=== PATIENT | male | born 1970 | race Two or more races ===

== ENCOUNTER 2017-11-08 16:03 | Inpatient (IN) | payer OTHER ==
[2017-11-08 16:10] VITALS: BMI 27.0
[2017-11-08] MEDS ORDERED: IBUPROFEN 400 MG TABLET (FP) PO PRN (17:10)
[2017-11-08] MEDS ORDERED: LOPERAMIDE HCL 2 MG CAPSULE PO PRN (17:10)
[2017-11-08] MEDS ORDERED: MAGNESIUM CITRATE 300 ML BOTTLE PO PRN (17:10)
[2017-11-08] MEDS ORDERED: chlordiazePOXIDE HCL 25 MG CAPSULE PO PRN (17:10)
[2017-11-08] MEDS ORDERED: ACETAMINOPHEN 325 MG TABLET (FP) PO PRN (17:10)
[2017-11-08] MEDS ORDERED: P-EPHED 60MG/TRIPROLIDI 2.5MG TABLET PO PRN (17:10)
[2017-11-08] MEDS ORDERED: chlordiazePOXIDE HCL 25 MG CAPSULE PO ONE (17:10)
[2017-11-08] MEDS ORDERED: hydrOXYzine PAMOATE 50 MG CAPSULE (FP) PO PRN (17:10)
[2017-11-08] MEDS ORDERED: guaiFENesin/D-METHORPHAN HB 10 ML UNIT-DOSE CUPS PO PRN (17:10)
[2017-11-08] MEDS ORDERED: MAGNESIUM HYDROX 2400MG/30ML ORAL SUSPENSION 30 ML CUP PO PRN (17:10)
[2017-11-08] MEDS ORDERED: MENTHOL/PHENOL 1 EACH UD MM PRN (17:10)
--- NOTE | 2017-11-08 17:27 | HP ---
CIWA Score - CIWA Score Nausea/Vomitin Muscle Tremors: 5 Anxiety: 4-Mod. Anxious/Guarded Agitation: 4-Moderately Restless Paroxysmal Sweats: 3 Orientation: 1-Uncertain about Date Tacttile Disturbances: 0-None Auditory Disturbances: 0-None Visual Disturbances: 0-None Headache: 0-None Present CIWA-Ar Total Score: 20 Admission ROS BHS - HPI Chief Complaint: Withdrawal sx. Allergies/Adverse Reactions: Allergies Allergy/AdvReac Type Severity Reaction Status Date / Time cranberry Allergy Intermediate Rash Verified 11/08/17 17:18 peanut Allergy Intermediate Rash Verified 11/08/17 17:18 cranberry Allergy Intermediate Rash Uncoded 11/08/17 17:06 peanuts Allergy Intermediate Rash Uncoded 11/08/17 17:05 History of Present Illness: 47 y/o man with a long hx. of alcoholism is admitted for detox. Pt. has been in previous detox, denies significant sobriety. Pt. was at [facility] from last night to this morning for alcohol intoxication & chest pain. Exam Limitations: No Limitations - Ebola screening Have you traveled outside of the country in the last 21 days: No Have you had contact with anyone from an Ebola affected area: No Have you been sick,other than usual withdrawal symptoms: No Do you have a fever: No - Review of Systems Constitutional: Diaphoresis EENT: reports: No Symptoms Reported Respiratory: reports: No Symptoms reported Cardiac: reports: No Symptoms Reported GI: reports: Nausea, Abdominal cramping Musculoskeletal: reports: Back Pain Integumentary: reports: Sweating Neuro: reports: Tremors, Other (black out) Endocrine: reports: No Symptoms Reported Hematology: reports: No Symptoms Reported Psychiatric: reports: No Sypmtoms Reported Other Systems: Reviewed and Negative Patient History - Patient Medical History Hx Anemia: No Hx Asthma: No Hx Chronic Obstructive Pulmonary Disease (COPD): No Hx Cancer: No Hx Cardiac Disorders: Yes (coronary stent, mild [place]?) Hx Congestive Heart Failure: No Hx Hypertension: Yes Hx Hypercholesterolemia: Yes Hx Pacemaker: No HX Cerebrovascular Accident: No Hx Seizures: Yes (2015 ?) Hx Dementia: No Hx Diabetes: Yes (BGM-97) Hx Gastrointestinal Disorders: No Hx Liver Disease: No Hx Genitourinary Disorders: No Hx Sexually Transmitted Disorders: No Hx Renal Disease (ESRD): No Hx Thyroid Disease: No Hx Human Immunodeficiency Virus (HIV): No Hx Hepatitis C: No Hx Depression: Yes Hx Suicide Attempt: Yes Hx Bipolar Disorder: No Hx Schizophrenia: No - Patient Surgical History Past Surgical History: Yes Hx Cardiac Surgery: Yes (cardiiac stents) - PPD History Previous Implant?: Yes Documented Results: Positive w/o proof Implanted On Prior [facility] Admission?: No PPD to be Administered?: No - Smoking Cessation Smoking history: Never smoked Hx Chewing Tobacco Use: No Initiated information on smoking cessation: No - Substance & Tx. History Hx Alcohol Use: Yes Hx Substance Use: No Substance Use Type: Alcohol Hx Substance Use Treatment: Yes ([facility]) - Substances Abused Alcohol Route: Oral Frequency: Daily Amount used: vodka(2-3 1/4 pints) Age of first use: 14 Date of Last Use: 11/07/17 Family Disease History - Family Disease History Family Disease History: Heart Disease: Father ( of heart disease) Admission Physical Exam S - Vital Signs Vital Signs: Vital Signs - 24 hr 11/08/17 16:09 Temperature 97 F L Pulse Rate 98 H Respiratory 20 Rate Blood Pressure 162/99 - Physical General Appearance: Yes: Tremorous, Irritable, Sweating, Anxious HEENTM: Yes: Within Normal Limits Respiratory: Yes: Chest Non-Tender, Lungs Clear, Normal Breath Sounds Neck: Yes: Supple Breast: Yes: Breast Exam Deferred Cardiology: Yes: Regular Rhythm, Regular Rate, S1, S2 Abdominal: Yes: Normal Bowel Sounds, Non Tender, Flat Genitourinary: Yes: Within Normal Limits Back: Yes: Within Normal Limits Musculoskeletal: Yes: Within Normal Limits Extremities: Yes: Tremors Neurological: Yes: Fully Oriented, Alert Integumentary: Yes: Diaphoresis Lymphatic: Yes: Within Normal Limits - Diagnostic (1) Alcohol dependence with uncomplicated withdrawal Current Visit: Yes Status: Acute (2) HTN (hypertension) Current Visit: Yes Status: Acute Qualifiers: Hypertension type: essential hypertension Qualified Code(s): I10 - Essential (primary) hypertension (3) CAD (coronary artery disease) Current Visit: Yes Status: Acute Qualifiers: Coronary Disease-Associated Artery/Lesion type: [place] artery [place] vs. transplanted heart: [place] heart Associated angina: without angina Qualified Code(s): I25.10 - Atherosclerotic heart disease of [place] coronary artery without angina pectoris (4) Stented coronary artery Current Visit: Yes Status: Acute Cleared for Admission [facility] - Detox or Rehab [facility] Level of Care: Medically Managed Detox Regimen/Protocol: Librium [facility] Breath Alcohol Content Breath Alcohol Content: 0.113 Urine Drug Screen - Results Drug Screen Negative: No Urine Drug Screen Results: BZO-Benzodiazepines
[2017-11-08] MEDS: METOPROLOL TARTRATE 25 MG TABLET (FP) PO SCH (18:37)
[2017-11-08] MEDS: ASPIRIN COATED 81 MG TABLET.EC PO SCH (18:37)
[2017-11-08] MEDS: amLODIPine BESYLATE 10 MG TABLET (FP) PO SCH (18:38)
[2017-11-08 19:29] LABS: URINE APPEARANCE CLEAR; URINE BILIRUBIN NEGATIVE (NEGATIVE); URINE BLOOD NEGATIVE (NEGATIVE); URINE COLOR LTYELLOW; URINE GLUCOSE (UA) NEGATIVE (NEGATIVE); URINE KETONE NEGATIVE (NEGATIVE); URINE LEUK ESTERASE NEGATIVE (NEGATIVE); URINE NITRITE NEGATIVE (NEGATIVE); URINE PROTEIN NEGATIVE (NEGATIVE); URINE UROBILINOGEN 4.0 E.U/dl mg/dL (0.2-1.0)
[2017-11-08] MEDS: chlordiazePOXIDE HCL 25 MG CAPSULE PO SCH (22:08)
[2017-11-08] MEDS: THIAMINE HCL 100 MG TABLET (FP) PO SCH (22:09)
[2017-11-08] MEDS: ATORVASTATIN CA 20 MG TABLET (FP) PO SCH (22:09)
[2017-11-08 22:30] LABS: URINE LEUK ESTERASE Negative (NEGATIVE)
[2017-11-09] MEDS: chlordiazePOXIDE HCL 25 MG CAPSULE PO SCH ×4 (05:04→22:01)
[2017-11-09] MEDS: PRENATAL VITAMINS W/ FOLIC ACID TABLET (FP) PO SCH (09:05)
[2017-11-09] MEDS: ASPIRIN COATED 81 MG TABLET.EC PO SCH (09:05)
[2017-11-09] MEDS: amLODIPine BESYLATE 10 MG TABLET (FP) PO SCH (09:05)
[2017-11-09] MEDS: METOPROLOL TARTRATE 25 MG TABLET (FP) PO SCH (09:05)
--- NOTE | 2017-11-09 10:41 | CONSULT ---
[facility] Psychiatric Consult - Data Date of interview: 11/09/17 Admission source: [facility] Identifying data: This is 47 years old male with psychiatric hospitalization history intoxicated with [id number] Substance Abuse History: - Smoking Cessation. Smoking history: Never smoked. Hx Chewing Tobacco Use: No. Initiated information on smoking cessation: No. - Substance & Tx. History. Hx Alcohol Use: Yes. Hx Substance Use: No. Substance Use Type: Alcohol. Hx Substance Use Treatment: Yes ([facility] - Substances Abused. Alcohol. Route: Oral. Frequency: Daily. Amount used: vodka(2-3 1/4 pints). Age of first use: 14. Date of Last Use: 11/07/17 Medical History: HTN, CAD, Cardiac stent imstallment on 2004 Psychiatric History: Reports no medicationms ntaking priorm to admission, reports unclear psychiatric admission on 2013 at [facility] for safety Physical/Sexual Abuse/Trauma History: Denies Additional Comment: Obsevation. Detox Unit Care Protocol Mental Status Exam - Mental Status Exam Alert and Oriented to: Person Cognitive Function: Fair Patient Appearance: Unkempt Mood: Sad Affect: Flat Patient Behavior: Cooperative Speech Pattern: Appropriate Voice Loudness: Mildly Soft/Quiet Thought Process: Circumstantial Hallucinations: Denies Suicidal Ideation: Denies Homicidal Ideation: Denies Insight/Judgement: Fair Sleep: Difficulty falling asleep Appetite: Weight gain Muscle strength/Tone: Mild Hypotonicity Gait/Station: Shuffling Additional Comments: Obsevation. Detox Unit Care Protocol Psychiatric Findings - Problem List ([place] 1, 2,3) (1) Alcohol-induced mood disorder Current Visit: Yes Status: Acute (2) Alcohol dependence with uncomplicated withdrawal Current Visit: Yes Status: Acute - Initial Treatment Plan Initial Treatment Plan: Obsevation. Detox Unit Care Protocol
[2017-11-09 11:30] LABS: MCH 24.2 pg (25.7-33.7); MCHC 30.7 g/dl (32.0-35.9); MEAN CELL VOLUME 78.8 fl (80-96); MEAN PLT VOLUME 8.6 fl (7.5-11.1); PLATELET COUNT 104 K/MM3 (134-434); RDW 22.8 % (11.9-15.9); WHITE BLOOD COUNT 3.7 K/mm3 (4.0-10.0)
[2017-11-09 11:38] LABS: ALBUMIN 3.1 g/dl (3.4-5.0); ANION GAP 7 (8-16); CALCIUM 8.5 mg/dL (8.5-10.1); CO2 29 mmol/L (21-32); CREATININE 1.1 mg/dL (0.7-1.3); GLUCOSE,RANDOM 88 mg/dL (74-106); SGOT/AST 31 U/L (15-37); SGPT/ALT 27 U/L (12-78)
[2017-11-09 11:40] LABS: ALK PHOS 80 U/L (45-117); BILIRUBIN,TOTAL 0.7 mg/dL (0.2-1.0); TOT PROT 6.4 g/dl (6.4-8.2)
[2017-11-09 12:21] LABS: ANISOCYTOSIS 2+; HYPOCHROMIA 3+; MICROCYTOSIS 2+; TARGET CELLS 2+
--- NOTE | 2017-11-09 12:50 | PN ---
[facility] CIWA - CIWA Score Nausea/Vomitin-Mild Nausea/No Vomiting Muscle Tremors: 4-Moderate,w/Arms Extend Anxiety: 4-Mod. Anxious/Guarded Agitation: 4-Moderately Restless Paroxysmal Sweats: 5 Orientation: 0-Oriented Tacttile Disturbances: 1-Very Mild Itch/Numbness Auditory Disturbances: 0-None Visual Disturbances: 0-None Headache: 2-Mild CIWA-Ar Total Score: 21 BHS Progress Note (SOAP) Subjective: Headache, sweating, nausea, feeling confused at times. Patient stated he was found collapsed on the street couple of times due to hypoglycemia. As per patient, he walks about 1/4 of a mile daily in the morning and that he sometimes don't eat breakfast and never checked his finger stick. He reports being dx with DMT2 in 2001. Duplicating Machine Operator educated patient on hypoglycemic symptoms and importance of checking his finger sticks every day and also when he is going to exercise such as walking as this will drop his glucose. Duplicating Machine Operator encouraged patient to make sure his finger stick is at least =/>100 prior to ambulation and to always carry a hard candy, some sugar or juice with him in case he started experiencing hypoglycemic sxs. Patient stated he has a PCP in [place] but he doesn't follow up because it is too far from his home. Duplicating Machine Operator instructed patient to call his health insurance and request a PCP closer to home. Duplicating Machine Operator educated patient about the importance of controlling his diabetes in preventing complications and to follow up with his PCP, Front Office Medical Assistant and Job Placement Specialist frequently. Objective: 11/09/17 12:50 Last Vital Signs Temp Pulse Resp BP Pulse Ox 98.6 F 76 18 128/89 11/09/17 09:11 11/09/17 09:11 11/09/17 09:11 11/09/17 09:11 Laboratory Tests 11/08/17 11/08/17 11/09/17 17:14 18:00 05:05 WBC RBC Hgb Hct MCV MCH MCHC RDW Plt Count MPV Hypochromia Anisocytosis Microcytosis Target Cells Sodium Potassium Chloride Carbon Dioxide Anion Gap BUN Creatinine Creat Clearance w eGFR POC Glucometer 97 103 Random Glucose Calcium Total Bilirubin AST ALT Alkaline Phosphatase Total Protein Albumin Urine Color Ltyellow Urine Appearance Clear Urine pH 7.0 Ur Specific [place] 1.015 Urine Protein Negative Urine Glucose (UA) Negative Urine Ketones Negative Urine Blood Negative Urine Nitrite Negative Urine Bilirubin Negative Urine Urobilinogen 4.0 e.u/dl Ur Leukocyte Esterase Negative RPR Titer 11/09/17 11/09/17 11/09/17 07:45 07:45 07:45 WBC 3.7 L RBC 4.26 Hgb 10.3 L Hct 33.5 L MCV 78.8 L MCH 24.2 L MCHC 30.7 L RDW 22.8 H Plt Count 104 L MPV 8.6 Hypochromia 3+ Anisocytosis 2+ Microcytosis 2+ Target Cells 2+ Sodium 135 L Potassium 3.6 Chloride 99 Carbon Dioxide 29 Anion Gap 7 L BUN 14 Creatinine 1.1 Creat Clearance w eGFR > 60 POC Glucometer Random Glucose 88 Calcium 8.5 Total Bilirubin 0.7 AST 31 ALT 27 Alkaline Phosphatase 80 Total Protein 6.4 Albumin 3.1 L Urine Color Urine Appearance Urine pH Ur Specific [place] Urine Protein Urine Glucose (UA) Urine Ketones Urine Blood Urine Nitrite Urine Bilirubin Urine Urobilinogen Ur Leukocyte Esterase RPR Titer Nonreactive Labs noted: wbc 3.7, h/h 10.3/33.5, plt 104 Assessment: 11/09/17 12:53 Withdrawal symptoms Noted with pancytopenia Plan: Continue detox Pancytopenia: stable, follow up with PCP post discharge for monitoring/ management
--- NOTE | 2017-11-09 15:27 | EKG ---
Test Reason : Blood Pressure : / mmHG Vent. Rate : 093 BPM Atrial Rate : 093 BPM P-R Int : 158 ms QRS Dur : 088 ms QT Int : 352 ms P-R-T Axes : 000 034 116 degrees QTc Int : 437 ms NORMAL SINUS RHYTHM MODERATE VOLTAGE CRITERIA FOR LVH, MAY BE NORMAL VARIANT CANNOT RULE OUT SEPTAL INFARCT , AGE UNDETERMINED ABNORMAL ECG NO PREVIOUS ECGS AVAILABLE Confirmed by EL POON MD ([id number]) on 11/09/2017 3:27:17 PM Referred By: Confirmed By:EL POON MD
[2017-11-09] MEDS: THIAMINE HCL 100 MG TABLET (FP) PO SCH (22:00)
[2017-11-09] MEDS: ATORVASTATIN CA 20 MG TABLET (FP) PO SCH (22:01)
[2017-11-10] MEDS: chlordiazePOXIDE HCL 25 MG CAPSULE PO SCH ×3 (05:44→17:26)
[2017-11-10] MEDS: ASPIRIN COATED 81 MG TABLET.EC PO SCH (10:14)
[2017-11-10] MEDS: PRENATAL VITAMINS W/ FOLIC ACID TABLET (FP) PO SCH (10:14)
[2017-11-10] MEDS: METOPROLOL TARTRATE 25 MG TABLET (FP) PO SCH (10:14)
[2017-11-10] MEDS: amLODIPine BESYLATE 10 MG TABLET (FP) PO SCH (10:14)
--- NOTE | 2017-11-10 11:24 | PN ---
[facility] CIWA - CIWA Score Nausea/Vomitin-No Nausea/No Vomiting Muscle Tremors: 4-Moderate,w/Arms Extend Anxiety: 4-Mod. Anxious/Guarded Agitation: 4-Moderately Restless Paroxysmal Sweats: 1-Minimal Palms Moist Orientation: 0-Oriented Tacttile Disturbances: 3-Moderate Itch/Numb/Burn Auditory Disturbances: 0-None Visual Disturbances: 0-None Headache: 0-None Present CIWA-Ar Total Score: 16 S Progress Note (SOAP) Subjective: IRRITABILITY,SWEATS,TREMORS. Objective: 11/10/17 11:23 Vital Signs Temperature 97.8 F 11/10/17 08:59 Pulse Rate 108 H 11/10/17 08:59 Respiratory Rate 18 11/10/17 08:59 Blood Pressure 142/85 11/10/17 08:59 O2 Sat by Pulse Oximetry (%) Laboratory Last Values WBC 3.7 K/mm3 (4.0-10.0) L 11/09/17 07:45 RBC 4.26 M/mm3 (4.00-5.60) 11/09/17 07:45 Hgb 10.3 GM/dL (11.7-16.9) L 11/09/17 07:45 Hct 33.5 % (35.4-49) L 11/09/17 07:45 MCV 78.8 fl (80-96) L 11/09/17 07:45 MCH 24.2 pg (25.7-33.7) L 11/09/17 07:45 MCHC 30.7 g/dl (32.0-35.9) L 11/09/17 07:45 RDW 22.8 % (11.9-15.9) H 11/09/17 07:45 Plt Count 104 K/MM3 (134-434) L 11/09/17 07:45 MPV 8.6 fl (7.5-11.1) 11/09/17 07:45 Hypochromia 3+ 11/09/17 07:45 Anisocytosis 2+ 11/09/17 07:45 Microcytosis 2+ 11/09/17 07:45 Target Cells 2+ 11/09/17 07:45 Sodium 135 mmol/L (136-145) L 11/09/17 07:45 Potassium 3.6 mmol/L (3.5-5.1) 11/09/17 07:45 Chloride 99 mmol/L (98-107) 11/09/17 07:45 Carbon Dioxide 29 mmol/L (21-32) 11/09/17 07:45 Anion Gap 7 (8-16) L 11/09/17 07:45 BUN 14 mg/dL (7-18) 11/09/17 07:45 Creatinine 1.1 mg/dL (0.7-1.3) 11/09/17 07:45 Creat Clearance w eGFR > 60 (>60) 11/09/17 07:45 POC Glucometer 108 UNITS (80-120) 11/10/17 05:01 Random Glucose 88 mg/dL (74-106) 11/09/17 07:45 Calcium 8.5 mg/dL (8.5-10.1) 11/09/17 07:45 Total Bilirubin 0.7 mg/dL (0.2-1.0) 11/09/17 07:45 AST 31 U/L (15-37) 11/09/17 07:45 ALT 27 U/L (12-78) 11/09/17 07:45 Alkaline Phosphatase 80 U/L (45-117) 11/09/17 07:45 Total Protein 6.4 g/dl (6.4-8.2) 11/09/17 07:45 Albumin 3.1 g/dl (3.4-5.0) L 11/09/17 07:45 Urine Color Ltyellow 11/08/17 18:00 Urine Appearance Clear 11/08/17 18:00 Urine pH 7.0 (5.0-8.0) 11/08/17 18:00 Ur Specific [place] 1.015 (1.001-1.035) 11/08/17 18:00 Urine Protein Negative (NEGATIVE) 11/08/17 18:00 Urine Glucose (UA) Negative (NEGATIVE) 11/08/17 18:00 Urine Ketones Negative (NEGATIVE) 11/08/17 18:00 Urine Blood Negative (NEGATIVE) 11/08/17 18:00 Urine Nitrite Negative (NEGATIVE) 11/08/17 18:00 Urine Bilirubin Negative (NEGATIVE) 11/08/17 18:00 Urine Urobilinogen 4.0 e.u/dl mg/dL (0.2-1.0) 11/08/17 18:00 Ur Leukocyte Esterase Negative (NEGATIVE) 11/08/17 18:00 RPR Titer Nonreactive (NONREACTIVE) 11/09/17 07:45 Assessment: 11/10/17 11:23 WITHDRAWAL SX Plan: CONTINUE DETOX
[2017-11-10] MEDS: MAG HYDROX/AL HYDROX/SIMETH 30 ML UNIT-DOSE CUP PO PRN (15:53)
[2017-11-10] MEDS: THIAMINE HCL 100 MG TABLET (FP) PO SCH (22:16)
[2017-11-10] MEDS: ATORVASTATIN CA 20 MG TABLET (FP) PO SCH (22:16)
[2017-11-10] MEDS: chlordiazePOXIDE 5 MG CAPSULE PO SCH (22:16)
[2017-11-11] MEDS: chlordiazePOXIDE 5 MG CAPSULE PO SCH ×3 (05:12→18:29)
[2017-11-11] MEDS: MAG HYDROX/AL HYDROX/SIMETH 30 ML UNIT-DOSE CUP PO PRN (09:12)
--- NOTE | 2017-11-11 10:04 | PN ---
S Progress Note (SOAP) Subjective: DECREASED ANXIETY, SWEATS,IRRITABILITY. REPORTS FEELING BETTER TODAY THAN YESTERDAY. Objective: 11/11/17 10:03 Vital Signs Temperature 98.8 F 11/11/17 09:09 Pulse Rate 92 H 11/11/17 09:09 Respiratory Rate 18 11/11/17 09:09 Blood Pressure 140/91 11/11/17 09:09 O2 Sat by Pulse Oximetry (%) Laboratory Last Values WBC 3.7 K/mm3 (4.0-10.0) L 11/09/17 07:45 RBC 4.26 M/mm3 (4.00-5.60) 11/09/17 07:45 Hgb 10.3 GM/dL (11.7-16.9) L 11/09/17 07:45 Hct 33.5 % (35.4-49) L 11/09/17 07:45 MCV 78.8 fl (80-96) L 11/09/17 07:45 MCH 24.2 pg (25.7-33.7) L 11/09/17 07:45 MCHC 30.7 g/dl (32.0-35.9) L 11/09/17 07:45 RDW 22.8 % (11.9-15.9) H 11/09/17 07:45 Plt Count 104 K/MM3 (134-434) L 11/09/17 07:45 MPV 8.6 fl (7.5-11.1) 11/09/17 07:45 Hypochromia 3+ 11/09/17 07:45 Anisocytosis 2+ 11/09/17 07:45 Microcytosis 2+ 11/09/17 07:45 Target Cells 2+ 11/09/17 07:45 Sodium 135 mmol/L (136-145) L 11/09/17 07:45 Potassium 3.6 mmol/L (3.5-5.1) 11/09/17 07:45 Chloride 99 mmol/L (98-107) 11/09/17 07:45 Carbon Dioxide 29 mmol/L (21-32) 11/09/17 07:45 Anion Gap 7 (8-16) L 11/09/17 07:45 BUN 14 mg/dL (7-18) 11/09/17 07:45 Creatinine 1.1 mg/dL (0.7-1.3) 11/09/17 07:45 Creat Clearance w eGFR > 60 (>60) 11/09/17 07:45 POC Glucometer 98 UNITS (80-120) 11/11/17 05:11 Random Glucose 88 mg/dL (74-106) 11/09/17 07:45 Calcium 8.5 mg/dL (8.5-10.1) 11/09/17 07:45 Total Bilirubin 0.7 mg/dL (0.2-1.0) 11/09/17 07:45 AST 31 U/L (15-37) 11/09/17 07:45 ALT 27 U/L (12-78) 11/09/17 07:45 Alkaline Phosphatase 80 U/L (45-117) 11/09/17 07:45 Total Protein 6.4 g/dl (6.4-8.2) 11/09/17 07:45 Albumin 3.1 g/dl (3.4-5.0) L 11/09/17 07:45 Urine Color Ltyellow 11/08/17 18:00 Urine Appearance Clear 11/08/17 18:00 Urine pH 7.0 (5.0-8.0) 11/08/17 18:00 Ur Specific [place] 1.015 (1.001-1.035) 11/08/17 18:00 Urine Protein Negative (NEGATIVE) 11/08/17 18:00 Urine Glucose (UA) Negative (NEGATIVE) 11/08/17 18:00 Urine Ketones Negative (NEGATIVE) 11/08/17 18:00 Urine Blood Negative (NEGATIVE) 11/08/17 18:00 Urine Nitrite Negative (NEGATIVE) 11/08/17 18:00 Urine Bilirubin Negative (NEGATIVE) 11/08/17 18:00 Urine Urobilinogen 4.0 e.u/dl mg/dL (0.2-1.0) 11/08/17 18:00 Ur Leukocyte Esterase Negative (NEGATIVE) 11/08/17 18:00 RPR Titer Nonreactive (NONREACTIVE) 11/09/17 07:45 Assessment: 11/11/17 10:03 WITHDRAWAL SX Plan: CONTINUE DETOX
[2017-11-11] MEDS: ASPIRIN COATED 81 MG TABLET.EC PO SCH (10:10)
[2017-11-11] MEDS: METOPROLOL TARTRATE 25 MG TABLET (FP) PO SCH (10:10)
[2017-11-11] MEDS: PRENATAL VITAMINS W/ FOLIC ACID TABLET (FP) PO SCH (10:11)
[2017-11-11] MEDS: amLODIPine BESYLATE 10 MG TABLET (FP) PO SCH (10:11)
[2017-11-11] MEDS: ATORVASTATIN CA 20 MG TABLET (FP) PO SCH (22:19)
[2017-11-11] MEDS: THIAMINE HCL 100 MG TABLET (FP) PO SCH (22:19)
[2017-11-11] MEDS: chlordiazePOXIDE HCL 10 MG CAPSULE PO SCH (22:19)
[2017-11-12] MEDS: chlordiazePOXIDE HCL 10 MG CAPSULE PO SCH (05:37)
[2017-11-12 09:07] VITALS: BP 163/97; PULSE 80; TEMP 98.6
--- NOTE | 2017-11-12 09:16 | DS ---
[facility] Detox Discharge Summary Admission Date: 11/08/17 Discharge Date: 11/12/17 - History Present History: Alcohol Dependence Additional Comments: DETOX COMPLETED. PT REPORTS HE USES [facility] WHEN NEEDED AND HAS NO PMD. PT IS A POOR HISTORIAN AND DOES NOT REMEMBER NAME OF ANY PRIOR HOME PHARMACY EXCEPT [facility]. RX FOR ASPIRIN,LIPITOR, LOPRESSOR AND NORVASC SENT TO [facility] AT [address] [place] [address] AND INSTRUCTED PT TO [facility] BEFORE EXITING. PT WAS REFERRED TO [facility] FOR REHAB AND WAS TO BE PICKED UP BY THEIR TRANSPORTATION BUT PT DECLINED TO GO TO REHAB WELL AT THE LAST MINUTE. PT ALSO EXPRESSED REFUSAL NOT TO PICKUP RX STATING HE WILL GET RX FROM [facility]. COUNSELOR LISSETT AND THIS SKEINER SPOKE TO PATIENT. PT HAS VERY LIMITED INSIGHT TO HIS MEDICAL NEEDS DESPITE ALL ENCOURAGEMENTS/EXPLANATIONS AND NECESSITY TO HAVE RX AT HAND BEFORE EMBARKING ON HIS NEXT PLAN. Pertinent Past History: PLEASE SEE DX BELOW - Physical Exam Results Vital Signs: Vital Signs Temperature 98 F 11/12/17 05:54 Pulse Rate 86 11/12/17 05:54 Respiratory Rate 18 11/12/17 05:54 Blood Pressure 137/78 11/12/17 05:54 O2 Sat by Pulse Oximetry (%) Pertinent Admission Physical Exam Findings: WITHDRAWAL SX Laboratory Last Values WBC 3.7 K/mm3 (4.0-10.0) L 11/09/17 07:45 RBC 4.26 M/mm3 (4.00-5.60) 11/09/17 07:45 Hgb 10.3 GM/dL (11.7-16.9) L 11/09/17 07:45 Hct 33.5 % (35.4-49) L 11/09/17 07:45 MCV 78.8 fl (80-96) L 11/09/17 07:45 MCH 24.2 pg (25.7-33.7) L 11/09/17 07:45 MCHC 30.7 g/dl (32.0-35.9) L 11/09/17 07:45 RDW 22.8 % (11.9-15.9) H 11/09/17 07:45 Plt Count 104 K/MM3 (134-434) L 11/09/17 07:45 MPV 8.6 fl (7.5-11.1) 11/09/17 07:45 Hypochromia 3+ 11/09/17 07:45 Anisocytosis 2+ 11/09/17 07:45 Microcytosis 2+ 11/09/17 07:45 Target Cells 2+ 11/09/17 07:45 Sodium 135 mmol/L (136-145) L 11/09/17 07:45 Potassium 3.6 mmol/L (3.5-5.1) 11/09/17 07:45 Chloride 99 mmol/L (98-107) 11/09/17 07:45 Carbon Dioxide 29 mmol/L (21-32) 11/09/17 07:45 Anion Gap 7 (8-16) L 11/09/17 07:45 BUN 14 mg/dL (7-18) 11/09/17 07:45 Creatinine 1.1 mg/dL (0.7-1.3) 11/09/17 07:45 Creat Clearance w eGFR > 60 (>60) 11/09/17 07:45 POC Glucometer 108 UNITS (80-120) 11/12/17 05:37 Random Glucose 88 mg/dL (74-106) 11/09/17 07:45 Calcium 8.5 mg/dL (8.5-10.1) 11/09/17 07:45 Total Bilirubin 0.7 mg/dL (0.2-1.0) 11/09/17 07:45 AST 31 U/L (15-37) 11/09/17 07:45 ALT 27 U/L (12-78) 11/09/17 07:45 Alkaline Phosphatase 80 U/L (45-117) 11/09/17 07:45 Total Protein 6.4 g/dl (6.4-8.2) 11/09/17 07:45 Albumin 3.1 g/dl (3.4-5.0) L 11/09/17 07:45 Urine Color Ltyellow 11/08/17 18:00 Urine Appearance Clear 11/08/17 18:00 Urine pH 7.0 (5.0-8.0) 11/08/17 18:00 Ur Specific [place] 1.015 (1.001-1.035) 11/08/17 18:00 Urine Protein Negative (NEGATIVE) 11/08/17 18:00 Urine Glucose (UA) Negative (NEGATIVE) 11/08/17 18:00 Urine Ketones Negative (NEGATIVE) 11/08/17 18:00 Urine Blood Negative (NEGATIVE) 11/08/17 18:00 Urine Nitrite Negative (NEGATIVE) 11/08/17 18:00 Urine Bilirubin Negative (NEGATIVE) 11/08/17 18:00 Urine Urobilinogen 4.0 e.u/dl mg/dL (0.2-1.0) 11/08/17 18:00 Ur Leukocyte Esterase Negative (NEGATIVE) 11/08/17 18:00 RPR Titer Nonreactive (NONREACTIVE) 11/09/17 07:45 - Treatment Hospital Course: Detox Protocol Followed, Detoxed Safely, Responded well, Discharged Condition Good Patient has Accepted a Rehab Referral to: [facility] RE[facility] - Medication Discharge Medications: Ambulatory Orders Amlodipine Besylate [Norvasc -] 10 mg PO DAILY #30 tablet 11/12/17 Aspirin Coated [Ecotrin -] 81 mg PO DAILY #30 tablet.ec 11/12/17 Atorvastatin Ca [Lipitor] 20 mg PO HS 30 Days tablet 11/12/17 Metoprolol Tartrate [Lopressor -] 25 mg PO DAILY 30 Days tablet 11/12/17 - Diagnosis (1) Alcohol dependence with uncomplicated withdrawal Current Visit: Yes Status: Acute (2) CAD (coronary artery disease) Current Visit: Yes Status: Chronic Qualifiers: Coronary Disease-Associated Artery/Lesion type: [place] artery [place] vs. transplanted heart: [place] heart Associated angina: without angina Qualified Code(s): I25.10 - Atherosclerotic heart disease of [place] coronary artery without angina pectoris (3) Diabetes mellitus type 2, controlled, without complications Current Visit: Yes Status: Chronic (4) HTN (hypertension) Current Visit: Yes Status: Chronic Qualifiers: Hypertension type: essential hypertension Qualified Code(s): I10 - Essential (primary) hypertension (5) Stented coronary artery Current Visit: Yes Status: Chronic - AMA Did Patient Leave Against Medical Advice: No
== END 2017-11-12 10:25 | disposition home or self-care (01) | DRG 775 ==
LOC: YASAS 16:03 → Y3N 17:30
PROVIDERS: ADMIT Internal Medicine; ATTEND Internal Medicine
PROC: HZ2ZZZZ Detoxification Services for Substance Abuse Treatment (ICD-10-PCS; principal; 2017-11-08)
DX: F10.230 Alcohol dependence with withdrawal, uncomplicated (principal); F10.24 Alcohol dependence with alcohol-induced mood disorder; F32.9 Major depressive disorder, single episode, unspecified; I10 Essential (primary) hypertension; I25.10 Atherosclerotic heart disease of native coronary artery without angina pectoris; E11.9 Type 2 diabetes mellitus without complications; D61.818 Other pancytopenia; Z95.5 Presence of coronary angioplasty implant and graft; Z91.010 Allergy to peanuts; Z91.018 Allergy to other foods
CPT/HCPCS: 36415; 71020-TC; 80053; 81003; 85027; 86593; 93005; 93010

== ENCOUNTER 2018-12-08 17:10 | Inpatient (IN) | payer OTHER ==
[2018-12-08 18:35] VITALS: BMI 28.8
--- NOTE | 2018-12-08 21:22 | HP ---
CIWA Score - Admission Criteria OASAS Guidelines: Admission for Medically Managed Detox: Requires at least one of the followin. CIWA greater than 12 2. Seizures within the past 24 hours 3. Delirium tremens within the past 24 hours 4. Hallucinations within the past 24 hours 5. Acute intervention needed for co occurring medical disorder 6. Acute intervention needed for co occurring psychiatric disorder 7. Severe withdrawal that cannot be handled at a lower level of care (continued vomiting, continued diarrhea, abnormal vital signs) requiring intravenous medication and/or fluids 8. Admission ROS [facility] - [facility] Chief Complaint: 48 years old male seeking admission to Rehab Allergies/Adverse Reactions: Allergies Allergy/AdvReac Type Severity Reaction Status Date / Time cranberry Allergy Intermediate Rash Verified 12/08/18 19:03 peanut Allergy Intermediate Rash Verified 12/08/18 19:03 Penicillins Allergy Intermediate Swelling Verified 12/08/18 19:03 cranberry Allergy Intermediate Rash Uncoded 12/08/18 19:03 peanuts Allergy Intermediate Rash Uncoded 12/08/18 19:03 History of Present Illness: Patient is a 48 years old male with a history of alcohol abuse seeking admission to detox. Patient was admitted to [facility] from November 13, 2018 to December 08, 2018 with complaint of Alcoholic Parotitis , Right kidney mass, acute pancreatitis, acute cholecystitis, cholelithiasis, gastritis, neuropathy. He has history of CAD s/p OK and PCI in 2011, HFpEF, Pre- DM, hypertension, hyperlipidemia, depression and anemia. He denies suicide attempt/ suicidal ideation at this time. Exam Limitations: No Limitations - Ebola screening Have you traveled outside of the country in the last 21 days: No (N) Have you had contact with anyone from an Ebola affected area: No Have you been sick,other than usual withdrawal symptoms: No Do you have a fever: No - Review of Systems Constitutional: No Symptoms Reported EENT: reports: No Symptoms Reported Respiratory: reports: No Symptoms reported Cardiac: reports: No Symptoms Reported GI: reports: No Symptoms Reported : reports: No Symptoms Reported Musculoskeletal: reports: No Symptoms Reported Integumentary: reports: No Symptoms Reported Neuro: reports: No Symptoms reported Endocrine: reports: No Symptoms Reported Hematology: reports: No Symptoms Reported Psychiatric: reports: No Sypmtoms Reported, Orientated x3 Other Systems: Reviewed and Negative Patient History - Patient Medical History Hx Anemia: Yes (Iron deficiency anemia) Hx Asthma: No Hx Chronic Obstructive Pulmonary Disease (COPD): No Hx Cancer: No Hx Cardiac Disorders: Yes (Aspirin ) Hx Congestive Heart Failure: No Hx Hypertension: Yes (Carvedilol, Amlodipine) Hx Hypercholesterolemia: Yes (Simvastatin) Hx Pacemaker: No HX Cerebrovascular Accident: No Hx Seizures: No Hx Dementia: No Hx Diabetes: Yes (Not on medication) Hx Gastrointestinal Disorders: Yes (Gastritis - Pantoprazole) Hx Liver Disease: No Hx Genitourinary Disorders: No Hx Sexually Transmitted Disorders: No Hx Renal Disease (ESRD): No Hx Thyroid Disease: No Hx Human Immunodeficiency Virus (HIV): No (Negative September 2018) Hx Hepatitis C: No Hx Depression: Yes (Not on medication) Hx Suicide Attempt: No (Denies suicidal ideation at this time) Hx Bipolar Disorder: No Hx Schizophrenia: No - Patient Surgical History Past Surgical History: Yes Hx Cardiac Surgery: Yes ( 2 cardiac stents 2011 & 2017)) - PPD History Previous Implant?: Yes Documented Results: Negative w/o proof PPD to be Administered?: Yes - Reproductive History Patient is a Female of Child Bearing Age (11 -55 yrs old): No (MALE) - Smoking Cessation Smoking history: Never smoked Have you smoked in the past 12 months: No Hx Chewing Tobacco Use: No Initiated information on smoking cessation: No - Substance & Tx. History Hx Alcohol Use: Yes Hx Substance Use: No Substance Use Type: Alcohol Hx Substance Use Treatment: Yes ([facility]) - Substances Abused Alcohol Route: Oral Frequency: Daily Amount used: 2 PINTS OF VODKA Age of first use: 14 Date of Last Use: 11/12/18 Family Disease History - Family Disease History Family Disease History: Heart Disease: Father ( of heart disease) Admission Physical Exam S - Vital Signs Vital Signs: Vital Signs - 24 hr 12/08/18 18:32 Temperature 98.7 F Pulse Rate 111 H Respiratory 18 Rate Blood Pressure 137/96 - Physical General Appearance: Yes: Within Normal Limits, Moderate Distress HEENTM: Yes: EOMI, Normal ENT Inspection, Normal Voice, DONNELL Respiratory: Yes: Within Normal Limits, Lungs Clear, Normal Breath Sounds Neck: Yes: Supple Breast: Yes: Breast Exam Deferred Cardiology: Yes: Regular Rhythm, Regular Rate Abdominal: Yes: Normal Bowel Sounds, Soft Genitourinary: Yes: Within Normal Limits Back: Yes: Normal Inspection Musculoskeletal: Yes: Within Normal Limits Extremities: Yes: Normal Inspection Neurological: Yes: process automation engineer II-XII NML intact, Alert, Normal Mood/Affect Integumentary: Yes: Warm Lymphatic: Yes: Within Normal Limits - Diagnostic (1) Alcohol dependence Current Visit: Yes Status: Chronic Qualifiers: Substance use status: uncomplicated Qualified Code(s): F10.20 - Alcohol dependence, uncomplicated (2) Hyperlipidemia Current Visit: Yes Status: Chronic Qualifiers: Hyperlipidemia type: other hyperlipidemia Qualified Code(s): E78.49 - Other hyperlipidemia; E78.4 - Other hyperlipidemia (3) Iron deficiency anemia Current Visit: Yes Status: Chronic (4) CAD (coronary artery disease) Current Visit: Yes Status: Chronic Qualifiers: Coronary Disease-Associated Artery/Lesion type: [place] artery [place] vs. transplanted heart: [place] heart Associated angina: without angina Qualified Code(s): I25.10 - Atherosclerotic heart disease of [place] coronary artery without angina pectoris (5) Depression Current Visit: Yes Status: Chronic Qualifiers: Major depression recurrence: recurrent (6) HTN (hypertension) Current Visit: Yes Status: Chronic Qualifiers: Hypertension type: essential hypertension Qualified Code(s): I10 - Essential (primary) hypertension (7) PPD positive Current Visit: Yes Status: Chronic (8) Stented coronary artery Current Visit: Yes Status: Chronic [facility] Breath Alcohol Content Breath Alcohol Content: 0 Urine Drug Screen - Results Drug Screen Negative: No Urine Drug Screen Results: BZO-Benzodiazepines
[2018-12-08] MEDS ORDERED: guaiFENesin/D-METHORPHAN HB 10 ML UNIT-DOSE CUPS PO PRN (21:39)
[2018-12-08] MEDS ORDERED: MAGNESIUM CITRATE 300 ML BOTTLE PO PRN (21:39)
[2018-12-08] MEDS ORDERED: MAG HYDROX/AL HYDROX/SIMETH 30 ML UNIT-DOSE CUP PO PRN (21:39)
[2018-12-08] MEDS ORDERED: LOPERAMIDE HCL 2 MG CAPSULE PO PRN (21:39)
[2018-12-08] MEDS ORDERED: MAGNESIUM HYDROX 2400MG/30ML ORAL SUSPENSION 30 ML CUP PO PRN (21:39)
[2018-12-08] MEDS ORDERED: ACETAMINOPHEN 325 MG TABLET (FP) PO PRN (21:39)
[2018-12-08] MEDS ORDERED: P-EPHED 60MG/TRIPROLIDI 2.5MG TABLET PO PRN (21:39)
[2018-12-08] MEDS ORDERED: MENTHOL/PHENOL 1 EACH UD MM PRN (21:39)
[2018-12-08] MEDS ORDERED: MELATONIN 5 MG TABLETS PO PRN (22:00)
[2018-12-08] MEDS: GABAPENTIN 300 MG CAPSULE (FP) PO SCH (23:09)
[2018-12-08] MEDS: THIAMINE HCL 100 MG TABLET (FP) PO SCH (23:10)
--- NOTE | 2018-12-08 23:40 | HP ---
CIWA Score - Admission Criteria OASAS Guidelines: Admission for Medically Managed Detox: Requires at least one of the followin. CIWA greater than 12 2. Seizures within the past 24 hours 3. Delirium tremens within the past 24 hours 4. Hallucinations within the past 24 hours 5. Acute intervention needed for co occurring medical disorder 6. Acute intervention needed for co occurring psychiatric disorder 7. Severe withdrawal that cannot be handled at a lower level of care (continued vomiting, continued diarrhea, abnormal vital signs) requiring intravenous medication and/or fluids 8. Admission ROS [facility] - HPI Allergies/Adverse Reactions: Allergies Allergy/AdvReac Type Severity Reaction Status Date / Time cranberry Allergy Intermediate Rash Verified 12/08/18 19:03 peanut Allergy Intermediate Rash Verified 12/08/18 19:03 Penicillins Allergy Intermediate Swelling Verified 12/08/18 19:03 cranberry Allergy Intermediate Rash Uncoded 12/08/18 19:03 peanuts Allergy Intermediate Rash Uncoded 12/08/18 19:03 - Ebola screening Have you traveled outside of the country in the last 21 days: No (N) Have you had contact with anyone from an Ebola affected area: No Have you been sick,other than usual withdrawal symptoms: No Do you have a fever: No Patient History - Patient Medical History Hx Anemia: Yes (Iron deficiency anemia) Hx Asthma: No Hx Chronic Obstructive Pulmonary Disease (COPD): No Hx Cancer: No Hx Cardiac Disorders: Yes (Aspirin ) Hx Congestive Heart Failure: No Hx Hypertension: Yes (Carvedilol, Amlodipine) Hx Hypercholesterolemia: Yes (Simvastatin) Hx Pacemaker: No HX Cerebrovascular Accident: No Hx Seizures: No Hx Dementia: No Hx Diabetes: Yes (Not on medication) Hx Gastrointestinal Disorders: Yes (Gastritis - Pantoprazole) Hx Liver Disease: No Hx Genitourinary Disorders: No Hx Sexually Transmitted Disorders: No Hx Renal Disease (ESRD): No Hx Thyroid Disease: No Hx Human Immunodeficiency Virus (HIV): No (Negative September 2018) Hx Hepatitis C: No Hx Depression: Yes (Not on medication) Hx Suicide Attempt: No (Denies suicidal ideation at this time) Hx Bipolar Disorder: No Hx Schizophrenia: No - Patient Surgical History Past Surgical History: Yes Hx Cardiac Surgery: Yes ( 2 cardiac stents 2011 & 2017)) - PPD History Previous Implant?: Yes Documented Results: Negative w/o proof - Smoking Cessation Smoking history: Never smoked Have you smoked in the past 12 months: No Hx Chewing Tobacco Use: No Initiated information on smoking cessation: No - Substances Abused Alcohol Route: Oral Frequency: Daily Amount used: 2 PINTS OF VODKA Age of first use: 14 Date of Last Use: 11/12/18 Family Disease History - Family Disease History Family Disease History: Heart Disease: Father ( of heart disease) Admission Physical Exam [facility] - Vital Signs Vital Signs: Vital Signs - 24 hr 12/08/18 12/08/18 18:32 22:33 Temperature 98.7 F 97.7 F Pulse Rate 111 H 86 Respiratory 18 18 Rate Blood Pressure 137/96 132/81 - Diagnostic (1) Alcohol dependence Current Visit: Yes Status: Chronic Qualifiers: Substance use status: uncomplicated Qualified Code(s): F10.20 - Alcohol dependence, uncomplicated (2) Hyperlipidemia Current Visit: Yes Status: Chronic Qualifiers: Hyperlipidemia type: other hyperlipidemia Qualified Code(s): E78.49 - Other hyperlipidemia; E78.4 - Other hyperlipidemia (3) Iron deficiency anemia Current Visit: Yes Status: Chronic (4) CAD (coronary artery disease) Current Visit: Yes Status: Chronic Qualifiers: Coronary Disease-Associated Artery/Lesion type: [place] artery [place] vs. transplanted heart: [place] heart Associated angina: without angina Qualified Code(s): I25.10 - Atherosclerotic heart disease of [place] coronary artery without angina pectoris (5) Depression Current Visit: Yes Status: Chronic Qualifiers: Major depression recurrence: recurrent (6) HTN (hypertension) Current Visit: Yes Status: Chronic Qualifiers: Hypertension type: essential hypertension Qualified Code(s): I10 - Essential (primary) hypertension (7) PPD positive Current Visit: Yes Status: Chronic (8) Stented coronary artery Current Visit: Yes Status: Chronic Cleared for Admission [facility] - Detox or Rehab [facility] Level of Care: Observation Bed Claeared for Rehab Admission: Yes [facility] Breath Alcohol Content Breath Alcohol Content: 0 Urine Drug Screen - Results Drug Screen Negative: No Urine Drug Screen Results: BZO-Benzodiazepines Inpatient Rehab Admission - Initial Determination Are CD services needed?: Yes Free of communicable disease: Yes Not in need of hospitalization: Yes - Rehab Admission Criteria Previous failed treatment: Yes Poor recovery environment: Yes Comorbidities: Yes Lacks judgement: No Patient is meeting Inpatient Rehab admission criteria:: Yes
[2018-12-08 23:56] LABS: URINE APPEARANCE CLEAR; URINE BILIRUBIN NEGATIVE (<2.0 mg/dL); URINE COLOR STRAW; URINE GLUCOSE (UA) NEGATIVE (NEGATIVE); URINE KETONE NEGATIVE (NEGATIVE); URINE LEUK ESTERASE NEGATIVE (NEGATIVE); URINE NITRITE NEGATIVE (NEGATIVE); URINE PROTEIN NEGATIVE (NEGATIVE); URINE UROBILINOGEN NEGATIVE mg/dL (0.2-1.0)
[2018-12-09] MEDS: CARVEDILOL 3.125 MG TABLET (FP) PO SCH (11:00)
[2018-12-09] MEDS: ASPIRIN COATED 81 MG TABLET.EC PO SCH (11:00)
[2018-12-09] MEDS: PRENATAL VITAMINS W/ FOLIC ACID TABLET (FP) PO SCH (11:00)
[2018-12-09] MEDS: amLODIPine BESYLATE 10 MG TABLET (FP) PO SCH (11:00)
[2018-12-09] MEDS: DOCUSATE SODIUM 100 MG CAPSULE (FP) PO SCH (11:00)
[2018-12-09] MEDS: GABAPENTIN 300 MG CAPSULE (FP) PO SCH ×2 (11:00→21:57)
[2018-12-09 14:32] LABS: HEMATOCRIT 34.5 % (35.4-49); HEMOGLOBIN 11.1 GM/dL (11.7-16.9); MCH 26.7 pg (25.7-33.7); MEAN CELL VOLUME 83.3 fl (80-96); MEAN PLT VOLUME 10.1 fl (7.5-11.1); PLATELET COUNT 219 K/MM3 (134-434); RBC 4.14 M/mm3 (4.00-5.60); RDW 22.3 % (11.9-15.9)
[2018-12-09 14:52] LABS: ALBUMIN 4.2 g/dl (3.4-5.0); ALK PHOS 97 U/L (45-117); ANION GAP 6 MMOL/L (8-16); BILIRUBIN,TOTAL 0.3 mg/dL (0.2-1); BLOOD UREA NITROGEN 23 mg/dL (7-18); CALCIUM 9.4 mg/dL (8.5-10.1); CHLORIDE 107 mmol/L (98-107); CO2 26 mmol/L (21-32); CREATININE 1.4 mg/dL (0.55-1.3); GLUCOSE,RANDOM 102 mg/dL (74-106); POTASSIUM 4.8 mmol/L (3.5-5.1); SGOT/AST 56 U/L (15-37); SGPT/ALT 55 U/L (13-61); SODIUM 140 mmol/L (136-145); TOT PROT 7.6 g/dl (6.4-8.2)
--- NOTE | 2018-12-09 16:23 | EKG ---
Test Reason : Blood Pressure : / mmHG Vent. Rate : 086 BPM Atrial Rate : 086 BPM P-R Int : 176 ms QRS Dur : 096 ms QT Int : 364 ms P-R-T Axes : 051 014 039 degrees QTc Int : 435 ms NORMAL SINUS RHYTHM NORMAL ECG WHEN COMPARED WITH ECG OF 08-NOV-2017 19:43, MINIMAL CRITERIA FOR SEPTAL INFARCT ARE NO LONGER PRESENT NON-SPECIFIC CHANGE IN ST SEGMENT IN INFERIOR LEADS NONSPECIFIC T WAVE ABNORMALITY NO LONGER EVIDENT IN LATERAL LEADS Confirmed by DAYANARA VALERO MD ([id number]) on 12/09/2018 4:22:52 PM Referred By: Confirmed By:DAYANARA VALERO MD
[2018-12-09] MEDS: THIAMINE HCL 100 MG TABLET (FP) PO SCH (21:57)
[2018-12-10] MEDS: DOCUSATE SODIUM 100 MG CAPSULE (FP) PO SCH (10:45)
[2018-12-10] MEDS: GABAPENTIN 300 MG CAPSULE (FP) PO SCH ×2 (10:45→22:41)
[2018-12-10] MEDS: ASPIRIN COATED 81 MG TABLET.EC PO SCH (10:46)
[2018-12-10] MEDS: ARTIFICIAL TEARS (POLYVINYL ALCOHOL) OPTH DROPS OU SCH ×2 (10:46→21:43)
[2018-12-10] MEDS: CARVEDILOL 3.125 MG TABLET (FP) PO SCH (10:46)
[2018-12-10] MEDS: amLODIPine BESYLATE 10 MG TABLET (FP) PO SCH (10:46)
[2018-12-10] MEDS: PRENATAL VITAMINS W/ FOLIC ACID TABLET (FP) PO SCH (10:47)
[2018-12-10 11:24] VITALS: TEMP 98.6
--- NOTE | 2018-12-10 15:18 | PN ---
[facility] Progress Note Note: xray reviewed with pt. result unchanged from 11/10/17 and lungs clear.
[2018-12-10] MEDS: THIAMINE HCL 100 MG TABLET (FP) PO SCH (21:43)
[2018-12-10] MEDS: HYDROCORTISONE 1% TOPICAL CREAM 30 GM TUBE TP SCH (21:44)
[2018-12-11] MEDS: ASPIRIN COATED 81 MG TABLET.EC PO SCH (10:44)
[2018-12-11] MEDS: PRENATAL VITAMINS W/ FOLIC ACID TABLET (FP) PO SCH (10:44)
[2018-12-11] MEDS: CARVEDILOL 3.125 MG TABLET (FP) PO SCH (10:44)
[2018-12-11] MEDS: GABAPENTIN 300 MG CAPSULE (FP) PO SCH ×2 (10:44→21:53)
[2018-12-11] MEDS: DOCUSATE SODIUM 100 MG CAPSULE (FP) PO SCH (10:44)
[2018-12-11] MEDS: amLODIPine BESYLATE 10 MG TABLET (FP) PO SCH (10:44)
[2018-12-11] MEDS: ARTIFICIAL TEARS (POLYVINYL ALCOHOL) OPTH DROPS OU SCH ×2 (10:45→21:55)
[2018-12-11] MEDS: HYDROCORTISONE 1% TOPICAL CREAM 30 GM TUBE TP SCH ×2 (10:46→21:54)
[2018-12-11] MEDS: THIAMINE HCL 100 MG TABLET (FP) PO SCH (21:53)
[2018-12-12 07:52] VITALS: BP 135/77; PULSE 72
[2018-12-12] MEDS: GABAPENTIN 300 MG CAPSULE (FP) PO SCH (10:29)
[2018-12-12] MEDS: ASPIRIN COATED 81 MG TABLET.EC PO SCH (10:29)
[2018-12-12] MEDS: amLODIPine BESYLATE 10 MG TABLET (FP) PO SCH (10:29)
[2018-12-12] MEDS: DOCUSATE SODIUM 100 MG CAPSULE (FP) PO SCH (10:29)
[2018-12-12] MEDS: CARVEDILOL 3.125 MG TABLET (FP) PO SCH (10:29)
[2018-12-12] MEDS: PRENATAL VITAMINS W/ FOLIC ACID TABLET (FP) PO SCH (10:29)
[2018-12-12] MEDS: HYDROCORTISONE 1% TOPICAL CREAM 30 GM TUBE TP SCH (10:31)
[2018-12-12] MEDS: ARTIFICIAL TEARS (POLYVINYL ALCOHOL) OPTH DROPS OU SCH (10:31)
--- NOTE | 2018-12-12 11:38 | DS ---
[facility] Detox Discharge Summary Admission Date: 12/08/18 Discharge Date: 12/12/18 - History Present History: Alcohol Dependence Additional Comments: Met with the patient in the security office. He is leaving against medical advice. When asked if he needed medication refills sent to the pharmacy, pt. stated the following "I don't need anything, I just want to leave". Pt was irate and refused to answer any further questions. No visible signs of distress noted. - Physical Exam Results Vital Signs: Vital Signs Temperature 98.6 F 12/12/18 07:51 Pulse Rate 72 12/12/18 07:51 Respiratory Rate 18 12/12/18 07:51 Blood Pressure 135/77 12/12/18 07:51 O2 Sat by Pulse Oximetry (%) Pertinent Admission Physical Exam Findings: Last Vital Signs Temp Pulse Resp BP Pulse Ox 98.6 F 72 18 135/77 12/12/18 07:51 12/12/18 07:51 12/12/18 07:51 12/12/18 07:51 - Medication Discharge Medications: Ambulatory Orders Amlodipine Besylate [Norvasc -] 10 mg PO DAILY #30 tablet 11/12/17 Aspirin Coated [Ecotrin -] 81 mg PO DAILY #30 tablet.ec 11/12/17 Carvedilol 3.125 mg PO DAILY 12/08/18 Docusate Sodium 100 mg PO DAILY 12/08/18 Gabapentin 300 mg PO BID 12/08/18 Pantoprazole Sodium 40 mg PO DAILY 12/08/18 Simvastatin 10 mg PO HS 12/08/18 - Diagnosis (1) Alcohol dependence Current Visit: Yes Status: Chronic Qualifiers: Substance use status: uncomplicated Qualified Code(s): F10.20 - Alcohol dependence, uncomplicated (2) CAD (coronary artery disease) Current Visit: Yes Status: Chronic Qualifiers: Coronary Disease-Associated Artery/Lesion type: [place] artery [place] vs. transplanted heart: [place] heart Associated angina: without angina Qualified Code(s): I25.10 - Atherosclerotic heart disease of [place] coronary artery without angina pectoris (3) HTN (hypertension) Current Visit: Yes Status: Chronic Qualifiers: Hypertension type: essential hypertension Qualified Code(s): I10 - Essential (primary) hypertension (4) Hyperlipidemia Current Visit: Yes Status: Chronic Qualifiers: Hyperlipidemia type: other hyperlipidemia Qualified Code(s): E78.49 - Other hyperlipidemia; E78.4 - Other hyperlipidemia (5) Iron deficiency anemia Current Visit: Yes Status: Chronic (6) PPD positive Current Visit: Yes Status: Chronic (7) Stented coronary artery Current Visit: Yes Status: Chronic (8) Pancytopenia Current Visit: No Status: Acute (9) Diabetes mellitus type 2, controlled, without complications Current Visit: No Status: Chronic - AMA Did Patient Leave Against Medical Advice: Yes
== END 2018-12-12 11:35 | disposition left against medical advice (07) | DRG 770 ==
LOC: YASAS 17:10 → Y5N 21:09
PROVIDERS: ADMIT Psychiatry & Neurology Psychiatry; ATTEND Psychiatry & Neurology Psychiatry
PROC: HZ42ZZZ Group Counseling for Substance Abuse Treatment, Cognitive-Behavioral (ICD-10-PCS; principal; 2018-12-08)
DX: F10.20 Alcohol dependence, uncomplicated (principal); I10 Essential (primary) hypertension; I25.10 Atherosclerotic heart disease of native coronary artery without angina pectoris; I50.9 Heart failure, unspecified; E78.5 Hyperlipidemia, unspecified; R76.11 Nonspecific reaction to tuberculin skin test without active tuberculosis; D61.818 Other pancytopenia; E11.9 Type 2 diabetes mellitus without complications; K29.00 Acute gastritis without bleeding; Z95.5 Presence of coronary angioplasty implant and graft; Z88.0 Allergy status to penicillin; Z91.010 Allergy to peanuts; Z79.82 Long term (current) use of aspirin
CPT/HCPCS: 36415; 71046-TC-FY; 80053; 81003; 82962; 85027; 86593; 93005; 93010

== ENCOUNTER 2022-07-14 17:26 | Inpatient (IN) | payer OTHER ==
[2022-07-14 18:23] VITALS: BMI 24.3
[2022-07-14] MEDS ORDERED: IBUPROFEN 600 MG TABLET (FP) PO PRN (21:03)
[2022-07-14] MEDS ORDERED: BENZOCAINE/MENTHOL (CHLORASEPTIC ) LOZENGE MM PRN (21:03)
[2022-07-14] MEDS ORDERED: MAGNESIUM HYDROX 2400MG/30ML ORAL SUSPENSION 30 ML CUP PO PRN (21:03)
[2022-07-14] MEDS ORDERED: guaiFENesin 200 MG/10 ML 10 ML UNIT-DOSE CUPS PO PRN (21:03)
[2022-07-14] MEDS ORDERED: P-EPHED 60MG/TRIPROLIDI 2.5MG TABLET PO PRN (21:03)
[2022-07-14] MEDS ORDERED: METHOCARBAMOL 500 MG TABLET PO PRN (21:03)
[2022-07-14] MEDS ORDERED: PROCHLORPERAZINE MALEATE 5 MG TABLET PO PRN (21:03)
[2022-07-14] MEDS ORDERED: MAGNESIUM CITRATE 300 ML BOTTLE PO PRN (21:03)
[2022-07-14] MEDS ORDERED: MAG HYDROX/AL HYDROX/SIMETH 30 ML UNIT-DOSE CUP PO PRN (21:03)
[2022-07-14] MEDS ORDERED: ACETAMINOPHEN 325 MG TABLET (FP) PO PRN ×2 (21:03)
[2022-07-14] MEDS ORDERED: IBUPROFEN 400 MG TABLET (FP) PO PRN (21:03)
[2022-07-14] MEDS ORDERED: BISMUTH SUBSALICYLATE 524 MG/30 ML PO PRN (21:03)
[2022-07-14] MEDS ORDERED: DICYCLOMINE HCL 10 MG CAPSULE PO PRN (21:03)
[2022-07-14] MEDS ORDERED: LOPERAMIDE HCL 2 MG CAPSULE PO PRN (21:03)
[2022-07-14] MEDS ORDERED: chlordiazePOXIDE HCL 25 MG CAPSULE PO PRN (21:03)
[2022-07-14] MEDS: MELATONIN 5 MG TABLETS PO SCH (23:43)
[2022-07-14] MEDS: chlordiazePOXIDE HCL 25 MG CAPSULE PO SCH (23:43)
[2022-07-14] MEDS: THIAMINE HCL 100 MG TABLET (FP) PO SCH (23:43)
[2022-07-15] MEDS: chlordiazePOXIDE HCL 25 MG CAPSULE PO SCH ×4 (06:12→22:26)
[2022-07-15] MEDS: PRENATAL VITAMINS W/ FOLIC ACID TABLET (FP) PO SCH (10:12)
[2022-07-15] MEDS ORDERED: PNEUMOC 20-VAL CONJ-DIP CRM/PF 0.5 ML SYRINGE IM ONE (12:00)
[2022-07-15 12:28] LABS: PH,URINE 6.5 (5.0-8.0); URINE APPEARANCE CLEAR; URINE BILIRUBIN NEGATIVE (NEGATIVE); URINE COLOR YELLOW; URINE GLUCOSE (UA) NEGATIVE (NEGATIVE); URINE KETONE NEGATIVE (NEGATIVE); URINE LEUK ESTERASE NEGATIVE (NEGATIVE); URINE NITRITE NEGATIVE (NEGATIVE); URINE PROTEIN NEGATIVE (NEGATIVE)
[2022-07-15 12:40] LABS: HEMATOCRIT 31.6 % (35.4-49); MCH 26.9 pg (25.7-33.7); MCHC 31.5 g/dl (32.0-35.9); MEAN CELL VOLUME 85.5 fl (80-96); MEAN PLT VOLUME 8.5 fl (7.5-11.1); PLATELET COUNT 197 10^3/uL (134-434); WHITE BLOOD COUNT 3.1 K/mm3 (4.0-10.0)
[2022-07-15 13:30] LABS: CALCIUM 8.6 mg/dL (8.5-10.1)
[2022-07-15 13:32] LABS: ALBUMIN 2.9 g/dl (3.4-5.0); BLOOD UREA NITROGEN 22.5 mg/dL (7-18)
[2022-07-15 13:34] LABS: CREATININE 0.9 mg/dL (0.55-1.3)
[2022-07-15 13:36] LABS: BILIRUBIN,TOTAL 0.6 mg/dL (0.2-1)
[2022-07-15 13:38] LABS: TOT PROT 6.3 g/dl (6.4-8.2)
[2022-07-15 14:17] LABS: HIV INTERPRETATION NEGATIVE (NEGATIVE)
[2022-07-15] MEDS: amLODIPine BESYLATE 10 MG TABLET (FP) PO SCH (15:52)
[2022-07-15] MEDS: ASPIRIN 81 MG CHEWABLE TABLETS PO SCH (15:52)
[2022-07-15] MEDS: CARVEDILOL 3.125 MG TABLET (FP) PO SCH (15:52)
[2022-07-15] MEDS: MELATONIN 5 MG TABLETS PO SCH (22:25)
[2022-07-15] MEDS: ATORVASTATIN CA 80 MG TABLET (FP) PO SCH (22:25)
[2022-07-15] MEDS: levETIRAcetam 500 MG TABLET (FP) PO SCH (22:25)
[2022-07-15] MEDS: THIAMINE HCL 100 MG TABLET (FP) PO SCH (22:25)
[2022-07-16] MEDS: chlordiazePOXIDE HCL 25 MG CAPSULE PO SCH ×4 (05:44→22:10)
[2022-07-16] MEDS: CARVEDILOL 3.125 MG TABLET (FP) PO SCH (10:18)
[2022-07-16] MEDS: ASPIRIN 81 MG CHEWABLE TABLETS PO SCH (10:19)
[2022-07-16] MEDS: PRENATAL VITAMINS W/ FOLIC ACID TABLET (FP) PO SCH (10:19)
[2022-07-16] MEDS: amLODIPine BESYLATE 10 MG TABLET (FP) PO SCH (10:19)
[2022-07-16] MEDS: levETIRAcetam 500 MG TABLET (FP) PO SCH ×2 (10:19→22:10)
[2022-07-16] MEDS: MELATONIN 5 MG TABLETS PO SCH (22:10)
[2022-07-16] MEDS: ATORVASTATIN CA 80 MG TABLET (FP) PO SCH (22:10)
[2022-07-16] MEDS: THIAMINE HCL 100 MG TABLET (FP) PO SCH (22:11)
[2022-07-17] MEDS ORDERED: chlordiazePOXIDE HCL 10 MG CAPSULE PO PRN
[2022-07-17] MEDS: chlordiazePOXIDE HCL 10 MG CAPSULE PO SCH ×4 (05:28→22:42)
[2022-07-17] MEDS: levETIRAcetam 500 MG TABLET (FP) PO SCH ×2 (10:32→22:42)
[2022-07-17] MEDS: PRENATAL VITAMINS W/ FOLIC ACID TABLET (FP) PO SCH (10:32)
[2022-07-17] MEDS: CARVEDILOL 3.125 MG TABLET (FP) PO SCH (10:32)
[2022-07-17] MEDS: ASPIRIN 81 MG CHEWABLE TABLETS PO SCH (10:32)
[2022-07-17] MEDS: amLODIPine BESYLATE 10 MG TABLET (FP) PO SCH (10:32)
[2022-07-17] MEDS: HYDROCORTISONE 0.5% TOPICAL CREAM 30 GM TUBE TP SCH ×2 (11:25→22:42)
[2022-07-17] MEDS: ATORVASTATIN CA 80 MG TABLET (FP) PO SCH (22:42)
[2022-07-17] MEDS: MELATONIN 5 MG TABLETS PO SCH (22:42)
[2022-07-17] MEDS: THIAMINE HCL 100 MG TABLET (FP) PO SCH (22:42)
[2022-07-18] MEDS: chlordiazePOXIDE HCL 10 MG CAPSULE PO SCH ×2 (05:18→18:09)
[2022-07-18 09:15] VITALS: RESP 18
[2022-07-18] MEDS: ASPIRIN 81 MG CHEWABLE TABLETS PO SCH (10:20)
[2022-07-18] MEDS: amLODIPine BESYLATE 10 MG TABLET (FP) PO SCH (10:20)
[2022-07-18] MEDS: levETIRAcetam 500 MG TABLET (FP) PO SCH ×2 (10:20→22:07)
[2022-07-18] MEDS: PRENATAL VITAMINS W/ FOLIC ACID TABLET (FP) PO SCH (10:20)
[2022-07-18] MEDS: CARVEDILOL 3.125 MG TABLET (FP) PO SCH (10:21)
[2022-07-18] MEDS: HYDROCORTISONE 0.5% TOPICAL CREAM 30 GM TUBE TP SCH ×2 (10:21→22:07)
[2022-07-18] MEDS: ATORVASTATIN CA 80 MG TABLET (FP) PO SCH (22:07)
[2022-07-18] MEDS: THIAMINE HCL 100 MG TABLET (FP) PO SCH (22:07)
[2022-07-18] MEDS: MELATONIN 5 MG TABLETS PO SCH (22:07)
[2022-07-19] MEDS ORDERED: chlordiazePOXIDE HCL 10 MG CAPSULE PO ONE (05:00)
[2022-07-19 09:33] VITALS: BP 120/74; PULSE 102; TEMP 97.8
[2022-07-19] MEDS: ASPIRIN 81 MG CHEWABLE TABLETS PO SCH (10:26)
[2022-07-19] MEDS: levETIRAcetam 500 MG TABLET (FP) PO SCH (10:26)
[2022-07-19] MEDS: amLODIPine BESYLATE 10 MG TABLET (FP) PO SCH (10:26)
[2022-07-19] MEDS: CARVEDILOL 3.125 MG TABLET (FP) PO SCH (10:26)
[2022-07-19] MEDS: PRENATAL VITAMINS W/ FOLIC ACID TABLET (FP) PO SCH (10:28)
[2022-07-19] MEDS: HYDROCORTISONE 0.5% TOPICAL CREAM 30 GM TUBE TP SCH (10:28)
== END 2022-07-19 10:25 | disposition home or self-care (01) | DRG 775 ==
LOC: YASAS 17:26 → Y3N 22:28
PROVIDERS: ADMIT Allergy & Immunology; ATTEND Surgery
PROC: HZ2ZZZZ Detoxification Services for Substance Abuse Treatment (ICD-10-PCS; principal; 2022-07-14)
DX: F10.230 Alcohol dependence with withdrawal, uncomplicated (principal); F10.24 Alcohol dependence with alcohol-induced mood disorder; I10 Essential (primary) hypertension; I25.10 Atherosclerotic heart disease of native coronary artery without angina pectoris; E11.9 Type 2 diabetes mellitus without complications; E78.5 Hyperlipidemia, unspecified; D64.9 Anemia, unspecified; G40.909 Epilepsy, unspecified, not intractable, without status epilepticus; M54.59 Other low back pain; G89.29 Other chronic pain; M19.90 Unspecified osteoarthritis, unspecified site; Z91.81 History of falling; Z95.5 Presence of coronary angioplasty implant and graft; Z86.11 Personal history of tuberculosis; Z79.82 Long term (current) use of aspirin; Z86.19 Personal history of other infectious and parasitic diseases; Z88.0 Allergy status to penicillin; Z91.010 Allergy to peanuts; Z91.018 Allergy to other foods; Z91.14 Patient's other noncompliance with medication regimen; Z56.0 Unemployment, unspecified; Z59.00 Homelessness unspecified
CPT/HCPCS: 36415; 71046-TC-FY; 80053; 80177; 81003; 82962; 85027; 86593; 86780; 87389; 93005; 93010; C9803-CS; U0003; U0005

== ENCOUNTER 2022-10-17 19:43 | Inpatient (IN) | payer OTHER ==
[2022-10-17 22:27] VITALS: BMI 25.1
[2022-10-18] MEDS ORDERED: MAGNESIUM HYDROX 2400MG/30ML ORAL SUSPENSION 30 ML CUP PO PRN (04:50)
[2022-10-18] MEDS ORDERED: IBUPROFEN 400 MG TABLET (FP) PO PRN (04:50)
[2022-10-18] MEDS ORDERED: BENZOCAINE/MENTHOL (CHLORASEPTIC ) LOZENGE MM PRN (04:50)
[2022-10-18] MEDS ORDERED: MAG HYDROX/AL HYDROX/SIMETH 30 ML UNIT-DOSE CUP PO PRN (04:50)
[2022-10-18] MEDS ORDERED: NALOXONE HCL (KLOXXADO) 8 MG SPRAY NS PRN (04:50)
[2022-10-18] MEDS ORDERED: POLYETHYLENE GLYCOL (HEALTHYLAX) 3350 17 GM PACKET PO PRN (04:50)
[2022-10-18] MEDS ORDERED: IBUPROFEN 600 MG TABLET (FP) PO PRN (04:50)
[2022-10-18] MEDS ORDERED: NICOTINE 10 MG CARTRIDGE (INHALER) IH PRN (04:50)
[2022-10-18] MEDS ORDERED: ACETAMINOPHEN 325 MG TABLET (FP) PO PRN ×2 (04:50)
[2022-10-18] MEDS ORDERED: METHOCARBAMOL 500 MG TABLET PO PRN (04:50)
[2022-10-18] MEDS ORDERED: BISMUTH SUBSALICYLATE 524 MG/30 ML PO PRN (04:50)
[2022-10-18] MEDS ORDERED: LOPERAMIDE HCL 2 MG CAPSULE PO PRN (04:50)
[2022-10-18] MEDS ORDERED: NICOTINE POLACRILEX 2 MG GUM BUC PRN (04:50)
[2022-10-18] MEDS ORDERED: DICYCLOMINE HCL 10 MG CAPSULE PO PRN (04:50)
[2022-10-18] MEDS ORDERED: ONDANSETRON *ODT* 4 MG TABLET SL PRN (04:50)
[2022-10-18] MEDS: INSULIN SLIDING SCALE (NOVOLOG) 1 VIAL SQ SCH ×4 (07:33→22:25)
[2022-10-18 09:46] VITALS: RESP 18
[2022-10-18] MEDS: ASPIRIN 81 MG CHEWABLE TABLETS PO SCH (11:42)
[2022-10-18] MEDS: amLODIPine BESYLATE 10 MG TABLET (FP) PO SCH (11:42)
[2022-10-18] MEDS: CARVEDILOL 3.125 MG TABLET (FP) PO SCH ×2 (11:42→22:21)
[2022-10-18] MEDS: PRENATAL VITAMINS W/ FOLIC ACID TABLET (FP) PO SCH (11:42)
[2022-10-18] MEDS: levETIRAcetam 500 MG TABLET (FP) PO SCH ×2 (11:42→22:21)
[2022-10-18] MEDS: NICOTINE 14 MG/24 HOURS TOPICAL PATCH TD SCH (11:43)
[2022-10-18] MEDS ORDERED: ATORVASTATIN CA 80 MG TABLET (FP) PO SCH (22:00)
[2022-10-18] MEDS ORDERED: THIAMINE HCL 100 MG TABLET (FP) PO SCH (22:00)
[2022-10-18] MEDS ORDERED: MELATONIN 5 MG TABLETS PO SCH (22:00)
[2022-10-19] MEDS: INSULIN SLIDING SCALE (NOVOLOG) 1 VIAL SQ SCH ×2 (06:26→11:30)
[2022-10-19 09:37] VITALS: BP 132/88; PULSE 91; TEMP 98.1
[2022-10-19] MEDS: NICOTINE 14 MG/24 HOURS TOPICAL PATCH TD SCH (10:26)
[2022-10-19] MEDS: ASPIRIN 81 MG CHEWABLE TABLETS PO SCH (10:26)
[2022-10-19] MEDS: amLODIPine BESYLATE 10 MG TABLET (FP) PO SCH (10:26)
[2022-10-19] MEDS: PRENATAL VITAMINS W/ FOLIC ACID TABLET (FP) PO SCH (10:26)
[2022-10-19] MEDS: levETIRAcetam 500 MG TABLET (FP) PO SCH (10:26)
[2022-10-19] MEDS: CARVEDILOL 3.125 MG TABLET (FP) PO SCH (10:32)
[2022-10-19 11:22] LABS: HEMATOCRIT 37.3 % (35.4-49); HEMOGLOBIN 11.7 GM/dL (11.7-16.9); MCH 25.5 pg (25.7-33.7); MCHC 31.4 g/dl (32.0-35.9); MEAN CELL VOLUME 81.2 fl (80-96); MEAN PLT VOLUME 9.1 fl (7.5-11.1); PLATELET COUNT 176 10^3/uL (134-434); RBC 4.59 M/mm3 (4.00-5.60); RDW 20.8 % (11.9-15.9); WHITE BLOOD COUNT 5.1 K/mm3 (4.0-10.0)
[2022-10-19 12:12] LABS: CALCIUM 9.1 mg/dL (8.5-10.1)
[2022-10-19 12:13] LABS: ALBUMIN 3.4 g/dl (3.4-5.0); BLOOD UREA NITROGEN 18.8 mg/dL (7-18)
[2022-10-19 12:17] LABS: BILIRUBIN,TOTAL 0.6 mg/dL (0.2-1)
== END 2022-10-19 14:13 | disposition home or self-care (01) | DRG 775 ==
LOC: YASAS 19:43 → Y6N 10-18 05:28
PROVIDERS: ADMIT Allergy & Immunology; ATTEND Surgery
PROC: HZ2ZZZZ Detoxification Services for Substance Abuse Treatment (ICD-10-PCS; principal; 2022-10-18)
DX: F10.230 Alcohol dependence with withdrawal, uncomplicated (principal); F33.9 Major depressive disorder, recurrent, unspecified; D50.9 Iron deficiency anemia, unspecified; G40.909 Epilepsy, unspecified, not intractable, without status epilepticus; G62.9 Polyneuropathy, unspecified; I25.10 Atherosclerotic heart disease of native coronary artery without angina pectoris; I10 Essential (primary) hypertension; I25.2 Old myocardial infarction; Z95.5 Presence of coronary angioplasty implant and graft; E11.9 Type 2 diabetes mellitus without complications; Z79.84 Long term (current) use of oral hypoglycemic drugs; M54.50 Low back pain, unspecified; G89.29 Other chronic pain; R60.0 Localized edema; R76.11 Nonspecific reaction to tuberculin skin test without active tuberculosis; Z88.0 Allergy status to penicillin; Z91.010 Allergy to peanuts; Z91.018 Allergy to other foods
CPT/HCPCS: 36415; 80053; 80177; 82962; 85027; 86593; 86780; 93005; 93010; C9803-CS; U0003; U0005